=== PATIENT | male | born 1980 | race Caucasian/White ===

== ENCOUNTER 2016-08-20 22:04 | Emergency (ER) | payer OTHER ==
[~2016-08-20] VITALS: Ht 172.7 cm; Wt 81.6 kg
[~2016-08-20 22:04] MED LIST: ATORVASTATIN CA80 MG PO; PERCOCET 325 MG1 TA2 PO; PROTONIX 40MG T40 MG PO; TRICOR 145 MG145 MG PO
--- NOTE | 2016-08-20 22:13 | ED GENERAL ADULT ---
History of Present Illness General Chief Complaint: ETOH/Drug Related Complaint Stated Complaint: BIBA FOR OD Source: patient, old records, EMS Exam Limitations: no limitations Vital Signs & Intake/Output Vital Signs & Intake/Output Vital Signs Date Time Temp Pulse Resp B/P B/P Pulse O2 O2 Flow FiO2 Mean Ox Delivery Rate 08/21 0201 94 16 143/69 99 Nasal 2.0L Cannula 08/21 0000 98 16 98 Nasal 2.0L Cannula 08/207 14 96 Nasal 2.0L Cannula 08/20 2232 98.0 111 22 143/97 99 Nasal 3.0L Cannula 08/204 97 Room Air 08/21 2211 98.0 119 10 197/93 97 Room Air ED Intake and Output 08/21 0000 08/20 1200 Intake Total 200 Output Total Balance 200 Intake, IV 200 Patient 180 lb Weight Weight Reported by Patient Measurement Method Allergies Coded Allergies: NO KNOWN ALLERGIES (05/07/14) Reconcile Medications Atorvastatin Calcium 80 MG TABLET 1 TAB PO DAILY CHOLESTEROL (Reported) Fenofibrate 160 MG TABLET 1 TAB PO DAILY TRIGLYCERIDES/CHOLESTEROL (Reported) Triage Note: BIBA ?OVERDOSE, PT ADMITS TO USE OF 2 BAGS OF HEROIN AND WAS FOUND UNRESPONSIVE ON BATHROOM FLOOR BY WITH AGONAL RESPIRATIONS. RECEIVED 0.8MG NARCAN DOCTOR OF RADIOLOGY BY EMS. ARRIVES TEARFUL, WITH INTERMITTENT PERIODS OF SNORING RESPIRATIONS AND DOZING OFF. COOPERATIVE ON ARRIVAL. WANDED BY SECURITY ON ARRIVAL. SINUS TACH 110'S WITH OCCASIONAL PVC'S NOTED ON CM. DENIES CP/SOB. HYPERTENSIVE 197/93. PD PRESENT. DENIES SI/HI AND CONTRACTS FOR SAFETY. STATES THIS IS ONLY THE THIRD TIME TRYING HEROIN. DENIES ETOH USE. ACCUCHECK 123 Triage Nurses Notes Reviewed? yes HPI: Patient was found unresponsive. When respirations by his . Upon EMS arrival patient had pinpoint pupils. Patient was given 0.8 mg of IM Narcan with resolution of his symptoms. Patient states that this is only the third time that he did heroin and was not doing in a suicide attempt. Patient denies any suicidal or homicidal ideations. Patient denies any depression. Patient is awake alert and oriented. Past History Travel History Traveled to [place] past 21 day No Medical History Any Pertinent Medical History? see below for history Neurological: NONE EENT: NONE Cardiovascular: NONE Respiratory: NONE Gastrointestinal: NONE Hepatic: NONE Renal: 1 kidney Musculoskeletal: NONE Psychiatric: NONE Endocrine: PANCRETITIS Blood Disorders: NONE Cancer(s): NONE PULVERIZER/Reproductive: NONE History of MRSA: No History of VRE: No History of CDIFF: No Surgical History Surgical History: non-contributory Psychosocial History Who do you live with Family Services at Home None What is your primary language Mosotho Tobacco Use: Never used ETOH Use: occasional use Illicit Drug Use: heroin Family History Family History, If Any: MOTHER FH: hypertension FATHER FH: heart disease Hx Contributory? No Review of Systems Review of Systems Constitutional: Reports: no symptoms. EENTM: Reports: no symptoms. Respiratory: Reports: no symptoms. Cardiovascular: Reports: no symptoms. GI: Reports: no symptoms. Genitourinary: Reports: no symptoms. Musculoskeletal: Reports: no symptoms. Skin: Reports: no symptoms. Neurological/Psychological: Reports: no symptoms. Hematologic/Endocrine: Reports: no symptoms. Immunologic/Allergic: Reports: no symptoms. All Other Systems: Reviewed and Negative Physical Exam Physical Exam General Appearance: well developed/nourished, alert, awake, anxious, mild distress Head: atraumatic, normal appearance Eyes: Bilateral: PERRL, EOMI. Ears, Nose, Throat: normal pharynx, normal ENT inspection, hearing grossly normal Neck: normal inspection, supple, full range of motion Respiratory: normal breath sounds, chest non-tender, no respiratory distress, lungs clear Cardiovascular: regular rate/rhythm, normal peripheral pulses Gastrointestinal: normal bowel sounds, soft, non-tender, no organomegaly Back: normal inspection, normal range of motion Extremities: normal inspection, normal capillary refill, normal range of motion, no edema Neurologic/Psych: no motor/sensory deficits, awake, alert, oriented x 3, normal gait, normal mood/affect Skin: intact, normal color, warm/dry Lymphatic: no anterior cervical tracy Core Measures ACS in differential dx? No CVA/TIA Diagnosis: No Severe Sepsis Present: No Septic Shock Present: No Progress Differential Diagnoses I considered the following diagnoses in my evaluation of the patient: [Overdose] Plan of Care: Orders Procedure Date/time Status Telemetry/Test Puller 08/21 2211 Active ETHANOL 08/21 2211 Complete COMPREHENSIVE METABOLIC PANEL 08/21 2211 Complete CBC WITHOUT DIFFERENTIAL 08/21 2211 Complete Laboratory Tests 08/20/162223: Anion Gap 9, Estimated GFR > 60, BUN/Creatinine Ratio 17.0, Glucose 139 H, Calcium 9.4, Total Bilirubin 0.4, AST 25, ALT 47, Alkaline Phosphatase 56, Total Protein 6.6, Albumin 3.9, Globulin 2.7, Albumin/Globulin Ratio 1.4, CBC w Diff NO MAN DIFF REQ, RBC 4.96, MCV 86.8, MCH 28.5, RDW 13.1, MPV 9.2, Gran % 66.9, Lymphocytes % 23.9, Monocytes % 7.4, Eosinophils % 1.6, Basophils % 0.2, Absolute Granulocytes 10.6 H, Absolute Lymphocytes 3.8 H, Absolute Monocytes 1.2 H, Absolute Eosinophils 0.3, Absolute Basophils 0, PUBS MCHC 32.8 L, Serum Alcohol < 10.0 08/20/162211: Methadone Screen Cancelled, Barbiturate Screen Cancelled, Ur Phencyclidine Scrn Cancelled, Amphetamines Screen Cancelled, U Benzodiazepines Scrn Cancelled, Urine Cocaine Screen Cancelled, Urine Cannabis Screen Cancelled Initial ED EKG: none Comments: Patient observed in the ER for 4 hours. The patient continues to state that he is not suicidal. Patient was picked up by his mother. His mother has no concerns about suicidal ideations. Departure Departure Disposition: HOME OR SELF CARE Condition: Stable Clinical Impression Primary Impression: Opiate overdose Referrals: MARTI FAJARDO,ARGENIS Yip (PCP/Family) Additional Instructions: RETURN IF YOU WOULD LIKE HELP TO STOP USING OR FOR ANY CONCERNS Departure Forms: Customer Survey General Discharge Information Critical Care Note Critical Care Note Critical Care Time: non-applicable
[2016-08-20] MEDS ORDERED: ATORVASTATIN CA80 M1 PO (22:14)
[2016-08-20] MEDS ORDERED: FENOFIBRATE160 M1 PO (22:14)
[2016-08-20 22:39] LABS: ABSOLUTE BASOPHIL COUNT 0 /CUMM (0.0-0.2); ABSOLUTE EOSINOPHIL COUNT 0.3 /CUMM (0.0-0.7); ABSOLUTE GRANULOCYTE CT 10.6 /CUMM (1.4-6.5); ABSOLUTE LYMPH COUNT 3.8 /CUMM (1.2-3.4); ABSOLUTE MONOCYTE COUNT 1.2 /CUMM (0.10-0.60); BASOPHIL % 0.2 % (0.0-2.0); EOSINOPHIL % 1.6 % (0-5); HEMATOCRIT 43.1 % (42-52); MEAN CORPUSCULAR HGB 28.5 PG (27.0-31.0); MEAN CORPUSCULAR HGB CONC 32.8 G/DL (33.0-37.0); MEAN CORPUSCULAR VOLUME 86.8 FL (80.0-94.0); MEAN PLATELET VOLUME 9.2 FL (7.4-10.4); PLATELET COUNT 160 /CUMM (130-400); RBC DISTRIBUTION WIDTH 13.1 % (11.5-14.5); RED BLOOD CELL CT 4.96 /CUMM (4.70-6.10); WHITE BLOOD CELL COUNT 15.8 /CUMM (4.8-10.8)
[2016-08-20 22:49] LABS: GRANULOCYTE % 66.9 % (42.2-75.2)
[2016-08-21 02:01] VITALS: BP 143/69
[2016-08-21] MEDS ORDERED: ZOFRAN ODT4 M1 SL (10:16)
[2016-08-21] MEDS ORDERED: CLONIDINE HCL0.1 MG PO (10:16)
[2016-08-21] MEDS ORDERED: LEVSIN0.125 M1 PO (10:16)
== END 2016-08-21 02:27 ==
LOC: ERH 22:04
PROVIDERS: Emergency Medicine
DX: T40.601A Poisoning by unspecified narcotics, accidental (unintentional), initial encounter (principal)
CPT/HCPCS: 80307; G0480

== ENCOUNTER 2016-08-21 09:38 | Emergency (ER) | payer OTHER ==
[~2016-08-21] VITALS: Ht 172.7 cm; Wt 86.2 kg
[~2016-08-21 09:38] MED LIST changes: +ATORVASTATIN CA80 M1 PO; +FENOFIBRATE160 M1 PO
[2016-08-21 10:02] VITALS: BP 166/94
[2016-08-21] MEDS ORDERED: CLONIDINE HCL0.1 MG PO (10:16)
[2016-08-21] MEDS ORDERED: LEVSIN0.125 M1 PO (10:16)
[2016-08-21] MEDS ORDERED: ZOFRAN ODT4 M1 SL (10:16)
--- NOTE | 2016-08-21 10:17 | ED PSYCHIATRIC COMPLAINT ---
History of Present Illness General Chief Complaint: ETOH/Drug Related Complaint Stated Complaint: REQ REHAB FOR OPIATE ABUSE Source: patient Exam Limitations: no limitations Vital Signs & Intake/Output Vital Signs & Intake/Output Vital Signs Date Time Temp Pulse Resp B/P B/P Pulse O2 O2 Flow FiO2 Mean Ox Delivery Rate 08/21 1002 98.9 109 18 166/94 99 Room Air Allergies Coded Allergies: NO KNOWN ALLERGIES (05/07/14) Reconcile Medications Atorvastatin Calcium 80 MG TABLET 1 TAB PO DAILY CHOLESTEROL (Reported) Clonidine HCl 0.1 MG TABLET 1 TAB PO BID PRN anxiety Fenofibrate 160 MG TABLET 1 TAB PO DAILY TRIGLYCERIDES/CHOLESTEROL (Reported) Hyoscyamine (Levsin) 0.125 MG TABLET 1 TAB PO Q4 PRN abdominal spasms Ondansetron (Zofran Odt) 4 MG TAB.RAPDIS 1 TAB SL TID PRN nausea Triage Note: PT REQUESTING HELP TO "GET OFF DRUGS", STATES HE OVERDOSED ON HEROIN LAST PM, WAS SEEN IN ED LAST NIGHT. STATES HE SNIFFS HEROIN DAILY (" FEW BAGS")X 6 MONTHS, WAS USING NARCOTICS PRIOR TO HEROIN USEAGE. MANFRED SI OR HI. Triage Nurses Notes Reviewed? yes Onset: Gradual Duration: worse persistent since (1.5 years) Timing: recent history Severity: severe Severity Numbers: 10 HPI: Patient is a 35-year-old male with history of pancreatitis secondary to high triglycerides presenting to the emergency department with chief complaint of "I need to get off drugs". Patient per se he's been using opiates for the past year and a half. Started off as using Percocets daily, now uses "a couple bags " of heroin daily. He reports that he since that. Does not use any IV injections. Denies any other drug use. No alcohol use. He does smoke cigarettes daily. Denies any current abdominal pain nausea vomiting fevers or chills chest pain or shortness of breath. Last use Around 8 PM. He does not use any more than normal, unsure if it was laced with anything. Denies any increased depression and anxiety. Reports that he has support from family members. Looking to get help for opiate abuse. (CRISTI MCDONALD,DEANDRE) Past History Travel History Traveled to [place] past 21 day No Medical History Any Pertinent Medical History? see below for history Neurological: NONE EENT: NONE Cardiovascular: hyperlipidemia Respiratory: NONE Gastrointestinal: NONE Hepatic: NONE Renal: 1 kidney Musculoskeletal: NONE Psychiatric: NONE Endocrine: PANCRETITIS Blood Disorders: NONE Cancer(s): NONE SOCIAL WELFARE CLERK/Reproductive: NONE History of MRSA: No History of VRE: No History of CDIFF: No Surgical History Surgical History: non-contributory Psychosocial History Who do you live with Family Services at Home None What is your primary language Congolese Tobacco Use: Current Daily Use Daily Tobacco Use Amount/Type: => 5 Cigarettes daily ETOH Use: denies use Illicit Drug Use: marijuana Family History Family History, If Any: MOTHER FH: hypertension FATHER FH: heart disease Hx Contributory? No (DEANDRE MACIAS) Review of Systems Review of Systems Constitutional: Reports: no symptoms. Comments Review of systems: See HPI, All other systems negative. Constitutional, no chills fever or weight loss HEENT: No visual changes no sore throat no congestion Cardiovascular: No chest pain ,palpitation , orthopnea or ankle swelling Skin, no jaundice no rashes Respiratory: No dyspnea cough sputum or hemoptysis GI: No nausea no vomiting : No dysuria No hematuria Muscle skeletal: no back pain, no neck pain, Neurologic: No numbness no confusion Psych: No increased stress anxiety or depression,. Heme/endocrine: No bruising no bleeding no polyuria or polydipsia Immunology: No splenectomy or history of AIDS (DEANDRE MACIAS) Physical Exam Physical Exam General Appearance: well developed/nourished, no apparent distress, alert, awake , comfortable Neurological/Psychiatric: no motor/sensory deficits, awake, oriented x 3 Comments: 1Well-developed well-nourished person in no acute distress HEENT: extraocular motion intact, no nystagmus. Pupils equally round and reactive to light and accommodation. Nose is atraumatic. Pharynx normal. No swelling or edema. Neck: normal inspection Back: Nontender Cardiovascular: Regular rate and rhythms no murmurs rubs or gallops, normal JVP Respiratory: Chest nontender. No respiratory distress.breath sounds clear to auscultation bilaterally Extremity: No edema Neuro: Alert oriented x3 Skin: No appreciable rash on exposed skin, skin is warm and dry. Psych: Mood and affect is normal, memory and judgment is normal. SAD PERSONS Done? patient not suicidal (DEANDRE MACIAS) Progress Differential Diagnosis: opiate abuse, opiate dependence, opiate withdrawal, polysubstance abuse Plan of Care: Patient is a well appearing, asymptomatic, vitals are stable. Patient has not used since last night around 8 PM and then was seen in the emergency department and given Narcan. Patient reports he usually feels nauseous with abdominal pain if he does not use but currently asymptomatic. He did not use this morning. Denies any other drug use. No suicidal or homicidal ideation. Patient was informed that we do not offer opiate detox here at this facility. He was given a list of outpatient facilities, also given medications to help with any withdrawal symptoms that he may experience. He is informed of signs and symptoms return. Patient nontoxic. (DEANDRE MACIAS) Departure Departure Time of Disposition: 1013 Disposition: HOME OR SELF CARE Condition: Stable Clinical Impression Primary Impression: Opiate abuse, continuous Referrals: MARTI FAJARDO,ARGENIS Yip (PCP/Family) Additional Instructions: Follow-up with detox facilities, a list was provided to you. Make sure you call to see if there are any beds available to you. Take Zofran, clonidine, Levsin as directed to help with detox symptoms. Return for worsening symptoms or concerns. Departure Forms: Customer Survey General Discharge Information Prescriptions: Current Visit Scripts Hyoscyamine (Levsin) 1 TAB PO Q4 PRN abdominal spasms #20 TAB Ondansetron (Zofran Odt) 1 TAB SL TID PRN nausea #10 TAB Clonidine HCl 1 TAB PO BID PRN anxiety #10 TAB (DEANDRE MACIAS) PA/[employer]OR FINISHER Co-Sign Statement Statement: ED Attending supervision documentation- [] I saw and evaluated the patient. I have also reviewed all the pertinent lab results and diagnostic results. I agree with the findings and the plan of care as documented in the PA's/H[employer]OR FINISHER's documentation. [X] I have reviewed the ED Record and agree with the PA's/H[employer] F[employer]OR FINISHER's documentation. [] Additions or exceptions (if any) to the PAs/H[employer] FLOOR FINISHER's note and plan are summarized below: [] (JOSÉ MANUEL FAJARDO,MELANY)
== END 2016-08-21 10:23 ==
LOC: ERH 09:38
DX: F11.10 Opioid abuse, uncomplicated (principal)